=== PATIENT | male | born 1990 | race Caucasian/White ===

== ENCOUNTER 2017-03-16 16:35 | Emergency (ER) | payer OTHER, MEDICAID ==
[~2017-03-16] VITALS: Ht 182.9 cm; Wt 72.6 kg
[2017-03-16 16:35] VITALS: BP_SYST 145
[2017-03-16] MEDS ORDERED: IBUPROFEN 800 MG TABLET PO ONE (17:15)
[2017-03-16] MEDS ORDERED: DIPH-TET-PERTUS Vaccine 0.5 ML VIAL (ADACEL) I.M. ONE (17:15)
[2017-03-16] MEDS ORDERED: LIDOCAINE 2%, 20 ML MDV INJ ONE (17:15)
[2017-03-16] MEDS ORDERED: BACITRACIN 1 GM OINT TP ONE (17:15)
[2017-03-16 18:26] VITALS: BP_SYST 140
== END 2017-03-16 18:26 | disposition home or self-care (01) ==
LOC: SED 16:35
DX: S61.212A Laceration without foreign body of right middle finger without damage to nail, initial encounter (principal); R03.0 Elevated blood-pressure reading, without diagnosis of hypertension; W45.8XXA Other foreign body or object entering through skin, initial encounter; Y93.89 Activity, other specified; Y92.89 Other specified places as the place of occurrence of the external cause; Y99.8 Other external cause status
CPT/HCPCS: 12002; 73140; 90471; 90715; 99284; J2001